=== PATIENT | female | born 1965 | race Two or more races ===

== ENCOUNTER 2019-12-03 15:16 | Emergency (ER) | payer MEDICARE, OTHER ==
[~2019-12-03] VITALS: Ht 152.4 cm; Wt 88.0 kg
[2019-12-03] MEDS ORDERED: CEPHALEXIN 250MG CAPSULE PO ONE (18:15)
[2019-12-03 18:29] VITALS: BP 165/82
== END 2019-12-03 18:41 | disposition home or self-care (01) ==
LOC: ER 15:16
DX: L03.011 Cellulitis of right finger (principal); Z48.00 Encounter for change or removal of nonsurgical wound dressing
CPT/HCPCS: 73130; 99283